=== PATIENT | female | born 1950 | race Caucasian/White ===

== ENCOUNTER 2017-12-16 19:08 | Emergency (ER) | payer MEDICARE, OTHER ==
[2017-12-16 19:19] VITALS: BP 136/108
[2017-12-16] MEDS ORDERED: Nitroglycerin 0.4 MG Tab.SL SL PRN (19:41)
[2017-12-16] MEDS ORDERED: Alum Hydrox/Mag Hydrox/Simeth 30 ML, Lidocaine 2% 15 ML PO ONE ×2 (19:41)
[2017-12-16] MEDS ORDERED: Aspirin 81 MG Tab.Chew PO ONE (19:41)
[2017-12-16] MEDS ORDERED: Sodium Chloride 0.9% 1,000 ML IV SCH (19:45)
--- NOTE | 2017-12-16 19:47 | EDM.PDOC ---
ED HPI GENERAL MEDICAL PROBLEM - General Chief Complaint: Chest Pain Stated Complaint: CHEST PAIN Time Seen by Provider: 12/16/17 19:39 Source of Information: Reports: Patient History Limitations: Reports: No Limitations - History of Present Illness INITIAL COMMENTS - FREE TEXT/NARRATIVE: Patient is a 67-year-old male presents ED complaining of anterior chest discomfort that started about one hour ago. Patient states pain was sudden onset described as sharp in nature and worse with taking a deep breath and palpation of the epigastric region. She did take some Tums which temporized the discomfort. Pain persist as we speak. Rated 5 out of 10. It does radiate into her back. It is not described as a tearing sensation. She denies any pain radiating through her abdomen into her lower extremities. She did become mildly diaphoretic and short of breath with onset. States she had similar symptoms in the past that were not as severe that resolved on her own accord. Pain is constant. Currently denies any shortness of breath, dysuria, acid reflux, diarrhea, blood in her stool, or fever. She is mildly nauseated with onset. Of note she did walk 3 miles today at approximately 1:00 this afternoon with no chest pain with exertion. She is little anxious. She routinely has yearly physicals. She has no past medical history and currently taking no meds. She does have 1st degree relative with heart disease with onset of unknown age. She does not smoke,use alcohol, and or recreational drugs. Middle Chest Pain Score (Numeric/FACES): 8 - Related Data Allergies Allergy/AdvReac Type Severity Reaction Status Date / Time No Known Allergies Allergy Verified 08/20/16 16:01 Home Meds: Home Meds Calcium Carbonate [Calcium] 1 tab PO BID 08/20/16 [History] Calcium Polycarbophil [Fiber Tabs] 1 tab PO BEDTIME 08/20/16 [History] Calcium Polycarbophil [Fiber Tabs] 2 tab PO QAM 08/20/16 [History] Cinnamon Bark [Cinnamon] 2 cap PO DAILY 08/20/16 [History] Multivitamin [Multivitamins] 1 tab PO DAILY 08/20/16 [History] Past Medical History HEENT History: Reports: Impaired Vision Other HEENT History: wears glasses, has dentures Cardiovascular History: Reports: None Respiratory History: Reports: None Gastrointestinal History: Reports: None Genitourinary History: Reports: None 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: , 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 Musculoskeletal History: Reports: Other (See Below) Other Musculoskeletal History: acromicroclavicualr joint arthritis, patellorfemoral pain L knee, 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, R rotator cuff impingement syndrome Neurological History: Reports: None Psychiatric History: Reports: None Endocrine/Metabolic History: Reports: None Hematologic History: Reports: None Immunologic History: Reports: None Oncologic (Cancer) History: Reports: None Dermatologic History: Reports: None - Past Surgical History Head Surgeries/Procedures: Reports: None HEENT Surgical History: Reports: Oral Surgery Social & Family History - Family History Family Medical History: Noncontributory - Tobacco Use Smoking Status *Q: Never Smoker - Caffeine Use Caffeine Use: Reports: None - Recreational Drug Use Recreational Drug Use: No ED ROS GENERAL - Review of Systems Review Of Systems: ROS reveals no pertinent complaints other than HPI. ED EXAM, GENERAL - Physical Exam Exam: See Below Exam Limited By: No Limitations General Appearance: Alert, WD/WN, Anxious Ears: Hearing Grossly Normal Nose: Normal Inspection Throat/Mouth: Normal Voice, No Airway Compromise Neck: Normal Inspection, Supple Respiratory/Chest: No Respiratory Distress, Lungs Clear, Normal Breath Sounds, No Accessory Muscle Use, Chest Non-Tender Cardiovascular: Normal Peripheral Pulses, Regular Rate, Rhythm Peripheral Pulses: 3+: Posterior Tibial (L), Posterior Tibial (R), 4+: Radial (L ), Radial (R) GI/Abdominal: Normal Bowel Sounds, Soft, Non-Tender, No Organomegaly, No Distention Back Exam: Normal Inspection Extremities: Normal Inspection, Normal Range of Motion, Non-Tender, No Pedal Edema, Normal Capillary Refill Neurological: Alert, Oriented, CN II-XII Intact, Normal Cognition, Unresponsive Psychiatric: Normal Affect, Normal Mood Skin Exam: Warm, Dry, Intact, Normal Color, No Rash Course - Vital Signs Last Recorded V/S: Last Vital Signs Temp 97.1 F 12/16/17 19:13 Pulse 59 L 12/16/17 19:13 Resp 12 12/16/17 19:13 BP 136/108 H 12/16/17 19:13 Pulse Ox 98 12/16/17 19:13 - Orders/Labs/Meds Labs: Laboratory Tests 05/28/18 05/28/18 05/28/18 Range/Units 19:27 19:27 19:27 WBC 6.36 (3.98-10.04) K/mm3 RBC 4.77 (3.98-5.22) M/mm3 Hgb 14.2 (11.2-15.7) gm/L Hct 43.0 (34.1-44.9) % MCV 90.1 (79.4-94.8) fl MCH 29.8 (25.6-32.2) pg MCHC 33.0 (32.2-35.5) g/dl RDW Std Deviation 46.5 H (36.4-46.3) fL Plt Count 255 (182-369) K/mm3 MPV 9.8 (9.4-12.3) fl Neutrophils % (Manual) 60 (40-60) % Band Neutrophils % 0 (0-10) % Lymphocytes % (Manual) 38 (20-40) % Atypical Lymphs % 0 % Monocytes % (Manual) 1 L (2-10) % Eosinophils % (Manual) 0 L (0.7-5.8) % Basophils % (Manual) 1 (0.1-1.2) Platelet Estimate Adequate Plt Morphology Comment Normal RBC Morph Comment Normal PT 10.3 (9.5-12.1) SECONDS INR 0.94 APTT 24 (24-31) SECONDS D-Dimer, Quantitative 1.51 H (0.19-0.50) mg/L Sodium 140 (136-145) mEq/L Potassium 3.3 L (3.5-5.1) mEq/L Chloride 103 (98-107) mEq/L Carbon Dioxide 30 (21-32) mEq/L Anion Gap 10.3 (5-15) BUN 20 H (7-18) mg/dL Creatinine 1.1 H (0.55-1.02) mg/dL Est Cr Clr Drug Dosing 45.82 mL/min Estimated GFR (MDRD) 49 (>60) mL/min BUN/Creatinine Ratio 18.2 H (14-18) Glucose 148 H (80-115) mg/dL Calcium 9.3 (8.5-10.1) mg/dL Total Bilirubin 0.4 (0.2-1.0) mg/dL AST 55 H (15-37) U/L ALT 52 (14-59) U/L Alkaline Phosphatase 47 (46-116) U/L Troponin I < 0.017 (0.00-0.056) ng/mL C-Reactive Protein < 0.2 (<1.0) mg/dL Total Protein 7.3 (6.4-8.2) g/dl Albumin 3.6 (3.4-5.0) g/dl Globulin 3.7 gm/dL Albumin/Globulin Ratio 1.0 (1-2) Lipase 232 (73-393) U/L Urine Color (Yellow) Urine Appearance (Clear) Urine pH (5.0-8.0) Ur Specific [place] (1.005-1.030) Urine Protein (Negative) Urine Glucose (UA) (Negative) Urine Ketones (Negative) Urine Occult Blood (Negative) Urine Nitrite (Negative) Urine Bilirubin (Negative) Urine Urobilinogen (0.2-1.0) Ur Leukocyte Esterase (Negative) Urine RBC (0-5) /hpf Urine WBC (0-5) /hpf Ur Epithelial Cells (0-5) /hpf Amorphous Sediment (NOT SEEN) /hpf Urine Bacteria (FEW) /hpf Urine Mucus (FEW) /hpf 12/16/17 12/16/17 Range/Units 21:15 23:05 WBC (3.98-10.04) K/mm3 RBC (3.98-5.22) M/mm3 Hgb (11.2-15.7) gm/L Hct (34.1-44.9) % MCV (79.4-94.8) fl MCH (25.6-32.2) pg MCHC (32.2-35.5) g/dl RDW Std Deviation (36.4-46.3) fL Plt Count (182-369) K/mm3 MPV (9.4-12.3) fl Neutrophils % (Manual) (40-60) % Band Neutrophils % (0-10) % Lymphocytes % (Manual) (20-40) % Atypical Lymphs % % Monocytes % (Manual) (2-10) % Eosinophils % (Manual) (0.7-5.8) % Basophils % (Manual) (0.1-1.2) Platelet Estimate Plt Morphology Comment RBC Morph Comment PT (9.5-12.1) SECONDS INR APTT (24-31) SECONDS D-Dimer, Quantitative (0.19-0.50) mg/L Sodium (136-145) mEq/L Potassium (3.5-5.1) mEq/L Chloride (98-107) mEq/L Carbon Dioxide (21-32) mEq/L Anion Gap (5-15) BUN (7-18) mg/dL Creatinine (0.55-1.02) mg/dL Est Cr Clr Drug Dosing mL/min Estimated GFR (MDRD) (>60) mL/min BUN/Creatinine Ratio (14-18) Glucose (80-115) mg/dL Calcium (8.5-10.1) mg/dL Total Bilirubin (0.2-1.0) mg/dL AST (15-37) U/L ALT (14-59) U/L Alkaline Phosphatase (46-116) U/L Troponin I < 0.017 (0.00-0.056) ng/mL C-Reactive Protein (<1.0) mg/dL Total Protein (6.4-8.2) g/dl Albumin (3.4-5.0) g/dl Globulin gm/dL Albumin/Globulin Ratio (1-2) Lipase (73-393) U/L Urine Color Yellow (Yellow) Urine Appearance Clear (Clear) Urine pH 7.0 (5.0-8.0) Ur Specific [place] 1.020 (1.005-1.030) Urine Protein Negative (Negative) Urine Glucose (UA) Negative (Negative) Urine Ketones Negative (Negative) Urine Occult Blood Negative (Negative) Urine Nitrite Negative (Negative) Urine Bilirubin Negative (Negative) Urine Urobilinogen 0.2 (0.2-1.0) Ur Leukocyte Esterase Trace H (Negative) Urine RBC 0-5 (0-5) /hpf Urine WBC 0-5 (0-5) /hpf Ur Epithelial Cells 0-5 (0-5) /hpf Amorphous Sediment Few H (NOT SEEN) /hpf Urine Bacteria Rare (FEW) /hpf Urine Mucus Not seen (FEW) /hpf Meds: Medications Discontinued Medications Generic Name Dose Route Start Last Admin Trade Name Freq PRN Reason Stop Dose Admin Aspirin 324 mg 12/16/17 19:41 12/16/17 19:50 Aspirin PO 12/16/17 19:42 324 mg ONETIME ONE Administration Al Hydroxide/Mg Hydroxide 30 0 ml 12/16/17 19:41 12/16/17 19:52 ml/ Lidocaine HCl 15 ml PO 12/16/17 19:42 45 ml ONETIME ONE Administration Sodium Chloride 1,000 mls @ 125 mls/hr 12/16/17 19:45 12/16/17 19:51 Normal Saline IV 125 mls/hr ASDIRECTED BRENNON Administration Sodium Chloride 100 mls @ 75 mls/hr 12/16/17 20:45 12/16/17 20:56 Normal Saline IV 75 mls/hr ASDIRECTED BRENNON Administration Iopamidol 100 ml 12/16/17 20:36 12/16/17 20:56 Isovue-370 (76%) IVPUSH 12/16/17 20:37 100 ml ONETIME ONE Administration Nitroglycerin 0.4 mg 12/16/17 19:41 Nitrostat SL Q5M PRN Chest Pain Sodium Chloride 10 ml 12/16/17 19:40 12/16/17 20:56 Saline Flush FLUSH 10 ml ASDIRECTED PRN Administration Keep Vein Open - Re-Assessments/Exams Free Text/Narrative Re-Assessment/Exam: IV established with NS at 125 mL an hour, aspirin 324 mg by mouth, GI cocktail by mouth, and also ordered when necessary nitroglycerin 0.4 mg sublingual every 5 minutes for chest pain. Initial labs and studies include CBC, chem 14, CRP, d-dimer, lipase, coag studies, troponin, UA, and chest x-ray one view. EKG sinus to cardiac rate of [address] changes noted. CXR revealed no acute findings. Final interpretation is pending. Labs reviewed: CBC was essentially normal. D-dimer elevated at 1.51. Sodium 140, potassium 3.3, creatinine 1.1, glucose 148, AST 55, troponin less than 0.017, CRP less than 0.2, lipase 232. I have ordered a CT angios the chest PE protocol. An additional order a second troponin to be obtained at 2220. 12/16/17 21:20 CT at bedtime impression: Normal chest CTA. No pulmonary embolism. Discussed results of labs and CT study with patient. She has no complaints. Symptoms drastically improved with the GI cocktail. Suspect patient has gastritis. 2nd troponin: unchanged. Patient is symptom free. Will discharge home with instructions as documented. Return precautions discussed with patient and family. The do not have any questions and agrees with plan. Departure - Departure Time of Disposition: 23:50 Disposition: Home, Self-Care 01 Condition: Good Clinical Impression: Hypokalemia Gastritis Qualifiers: Gastritis type: unspecified gastritis Chronicity: acute Gastritis bleeding: without bleeding Qualified Code(s): K29.00 - Acute gastritis without bleeding Instructions: Gastritis, Adult, [id number], Potassium Content of Foods Referrals: PCP,None [Ordering Only Provider] - Forms: ED Department Discharge Additional Instructions: EKG did not reveal any finding concerning for heart attack. DDimer was elevated thus CT of the chest was obtained to rule PE. CT of the chest came back normal. Cardiac Markers were negative as well.I do not suspect this was related to your heart. I believe you have gastritis thus treatment will be as listed below. Take prilosec 40mg every a.m. for two weeks. Take zantac 150mg PO every evening as needed. May take maalox intermittently throughout the day for epigastric pain. Refrain from caffeinated beverages, spicy foods, eating or drinking within 3 hours going to bed. Refrain from taking any form of NSAIDs. Follow-up with primary care provider this coming for reevaluation and to schedule a EGD. In addition potassium was mildly low.Please read the education provided for potassium replacement. If you develop any new or worsening symptoms please return to the ED.
[2017-12-16] MEDS: Sodium Chloride 0.9% 10 ML Syringe FLUSH PRN ×2 (19:55→20:56)
[2017-12-16] MEDS ORDERED: Iopamidol 755 Mg/ML 100 ML Bottle IVPUSH ONE (20:36)
[2017-12-16] MEDS ORDERED: Sodium Chloride 0.9% 100 ML IV SCH (20:45)
--- NOTE | 2017-12-17 07:18 | CR ---
Chest: Portable view of the chest was obtained. Comparison: No prior chest x-ray. Heart size and mediastinum are normal. Lungs are clear. Bony structures are grossly intact. Impression: 1. Nothing acute is seen on portable chest x-ray. Diagnostic code #1
--- NOTE | 2017-12-17 07:18 | CT ---
CT chest Technique: Multiple axial sections were obtained through the chest. Intravenous contrast was utilized. Study has been performed as a pulmonary angiogram protocol. Comparison: No prior chest CT, chest x-ray performed on the same day (8:03 PM). Findings: Pulmonary arteries are well-opacified. No filling defects are seen to indicate pulmonary embolism. Mediastinum and hilar regions show no adenopathy or mass. No axillary adenopathy is seen. No pericardial thickening is identified. Small portion of the visualized upper abdominal structures appear within normal limits. Lungs are clear without acute parenchymal change. Several small air-filled cysts are seen within both lung bases. Bone window settings were reviewed which show no acute osseous abnormality. Impression: 1. No findings of pulmonary embolism. 2. Other incidental findings. Nothing acute is seen on CT study of the chest performed as a pulmonary angiogram protocol. Diagnostic code #2 Agree with preliminary report issued by [facility] ([facility] preliminary report dictated on 12/16/17, 10:09 PM Central Time)
== END 2017-12-17 00:16 | disposition home or self-care (01) ==
LOC: JD.ED 19:08
DX: K29.00 Acute gastritis without bleeding (principal); E87.6 Hypokalemia; Z79.899 Other long term (current) drug therapy
CPT/HCPCS: 36415; 71045; 71275; 80053; 81001; 83690; 84484; 85007; 85027; 85379; 85610; 85730; 86140; 93005; 96360; 96361; 99285; A9270; J7030; J7040; J7050; Q9967; 93010; 99284

== ENCOUNTER 2018-08-12 07:33 | Day surgery (SDC) | payer MEDICARE, OTHER ==
[~2018-08-12 07:33] MED LIST: Cefuroxime 10 MG/ML SYRINGE EYERT SCH; Lidocaine 1% PF 2 ML SDV INJECT SCH; Pilocarpine 4% Ophth Soln 15 ML Bot EYERT SCH
[2018-08-12] MEDS: Polymyxin B/Trimethoprim 10 ML Bottle EYERT SCH ×3 (07:45→09:58)
--- NOTE | 2018-08-12 07:45 | PCM.PREANE ---
Preanesthetic Assessment - Procedure Proposed Procedure: cataract right - Anesthesia/Transfusion/Family Hx Anesthesia History: Prior Anesthesia Without Reaction Family History of Anesthesia Reaction: No Transfusion History: No Prior Transfusion(s) - Review of Systems General: No Symptoms Pulmonary: No Symptoms Cardiovascular: No Symptoms Gastrointestinal: No Symptoms Neurological: No Symptoms - Physical Assessment NPO Status Date: 08/11/18 NPO Status Time: 20:00 Pulse: 67 O2 Sat by Pulse Oximetry: 98 Respiratory Rate: 16 Blood Pressure: 100/61 Temperature: 98 F Height: 5 ft 5 in Weight: 63.957 kg ASA Class: 2 Mental Status: Alert & Oriented x3 Airway Class: Mallampati = 1 Dentition: Reports: Normal Dentition, Dentures (top) Thyro-Mental Finger Breadths: 3 Mouth Opening Finger Breadths: 3 ROM/Head Extension: Full Lungs: Clear to Auscultation, Normal Respiratory Effort Cardiovascular: Regular Rate, Regular Rhythm - Allergies Allergies/Adverse Reactions: Allergies Allergy/AdvReac Type Severity Reaction Status Date / Time No Known Allergies Allergy Verified 08/11/18 15:35 - Blood Blood Available: No - Acknowledgements Anesthesia Type Planned: MAC Pt an Appropriate Candidate for the Planned Anesthesia: Yes Alternatives and Risks of Anesthesia Discussed w Pt/Guardian: Yes Pt/Guardian Understands and Agrees with Anesthesia Plan: Yes PreAnesthesia Questionnaire HEENT History: Reports: Impaired Vision Other HEENT History: wears glasses, has dentures Cardiovascular History: Reports: None Respiratory History: Reports: None Gastrointestinal History: Reports: None Genitourinary History: Reports: None 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: , 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 Musculoskeletal History: Reports: Other (See Below) Other Musculoskeletal History: acromicroclavicualr joint arthritis, patellorfemoral pain L knee, 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, R rotator cuff impingement syndrome Neurological History: Reports: None Psychiatric History: Reports: None Endocrine/Metabolic History: Reports: None Hematologic History: Reports: None Immunologic History: Reports: None Oncologic (Cancer) History: Reports: None Dermatologic History: Reports: None - Past Surgical History Head Surgeries/Procedures: Reports: None HEENT Surgical History: Reports: Oral Surgery GI Surgical History: Reports: Cholecystectomy Musculoskeletal Surgical History: Reports: Shoulder Surgery ((R) bone spur) - SUBSTANCE USE Smoking Status *Q: Never Smoker Tobacco Use Within Last Twelve Months: No Second Hand Smoke Exposure: No Days Per Week of Alcohol Use: 0 Recreational Drug Use History: No - HOME MEDS Home Medications: Home Meds Calcium Carbonate [Calcium] 1 tab PO BID 08/20/16 [History] Calcium Polycarbophil [Fiber Tabs] 1 tab PO BEDTIME 08/20/16 [History] Calcium Polycarbophil [Fiber Tabs] 2 tab PO QAM 08/20/16 [History] Cinnamon Bark [Cinnamon] 2 cap PO DAILY 08/20/16 [History] Multivitamin [Multivitamins] 1 tab PO DAILY 08/20/16 [History] - CURRENT (IN HOUSE) MEDS Current Meds: Current Medications Brimonidine Tartrate (Alphagan 0.2% Ophth Soln) 0 ml EYERT ASDIRECTED BRENNON Stop: 08/12/18 18:00 Cefuroxime Sodium (Zinacef) 0 mg EYERT ASDIRECTED BRENNON Stop: 08/12/18 18:00 Lidocaine HCl (Xylocaine-Mpf 1%) 0 ml INJECT ASDIRECTED BRENNON Stop: 08/12/18 18:00 Phenylephrine HCl ([place]-Synephrine 2.5% Ophth Soln) 0 ml EYERT ASDIRECTED BRENNON Stop: 08/12/18 18:00 Pilocarpine HCl (Pilocar 4% Ophth Soln) 0 ml EYERT ASDIRECTED BRENNON Stop: 08/12/18 18:00 Polymyxin/Trimethoprim Sulfate (Polytrim Ophth Soln) 0 ml EYERT ASDIRECTED BRENNON Stop: 08/12/18 18:00 Tetracaine HCl (Tetracaine 0.5% Steri-Unit Ana) 0 ml EYERT ASDIRECTED BRENNON Stop: 08/12/18 18:00 Tropicamide (Mydriacyl 1% Ophth Soln) 0 ml EYERT ASDIRECTED BRENNON Stop: 08/12/18 18:00
[2018-08-12] MEDS: Brimonidine 0.2% Ophth Soln 5 ML Bottle EYERT SCH ×3 (07:48→09:58)
[2018-08-12] MEDS: Phenylephrine 2.5% Ophth Soln 2 ML Bot EYERT SCH ×5 (07:52→09:40)
[2018-08-12] MEDS: Tropicamide 1% Ophth Soln 15 ML Bottle EYERT SCH ×4 (07:58→08:52)
[2018-08-12] MEDS: Tetracaine HCl/PF 0.5% 4 ML Bottle EYERT SCH ×4 (09:18→09:48)
[2018-08-12 10:10] VITALS: BP 102/59
--- NOTE | 2018-08-12 10:21 | PCM48HPAN ---
Post Anesthesia Note - EVALUATION WITHIN 48HRS OF ANESTHETIC Vital Signs in Normal Range: Yes Patient Participated in Evaluation: Yes Respiratory Function Stable: Yes Airway Patent: Yes Cardiovascular Function Stable: Yes Hydration Status Stable: Yes Pain Control Satisfactory: Yes Nausea and Vomiting Control Satisfactory: Yes Mental Status Recovered: Yes Pulse Rate: 60 SaO2: 98 Resp Rate: 16 Temperature: 98 F Blood Pressure: 102/59
== END 2018-08-12 10:08 | disposition home or self-care (01) ==
LOC: JD.SDS 07:33
PROVIDERS: ATTEND Ophthalmology
DX: H25.811 Combined forms of age-related cataract, right eye (principal); H02.831 Dermatochalasis of right upper eyelid; H16.223 Keratoconjunctivitis sicca, not specified as Sjogren's, bilateral; H35.9 Unspecified retinal disorder; Z98.42 Cataract extraction status, left eye; Z96.1 Presence of intraocular lens; Z79.899 Other long term (current) drug therapy
CPT/HCPCS: 66984; A9270; J0697; C1780; J2001

== ENCOUNTER 2020-06-22 08:30 | Emergency (ER) | payer MEDICARE, OTHER ==
--- NOTE | 2020-06-22 08:55 | EDM.PDOC ---
ED HPI GENERAL MEDICAL PROBLEM - General Chief Complaint: Syncope Stated Complaint: FALL/LOW BP/L FOOT PAIN Time Seen by Provider: 06/22/20 08:50 Source of Information: Reports: Patient, Family (spouse) History Limitations: Reports: No Limitations - History of Present Illness INITIAL COMMENTS - FREE TEXT/NARRATIVE: 70-year-old female presents to the ED for evaluation of syncopal event that occurred in her kitchen earlier this morning between 4 and 5 AM. She is not on any medications for blood pressure or her heart. She not aware of her heart racing skipping or jumping. She reports that she fell yesterday while walking up a flight of stairs at her home. This is resulted in an acute inversion injury to her left ankle and it became much more painful last evening and again this morning with attempt to walk. She not sure if she tripped over her own feet this morning or blood pressure dropped precipitously. She reports this morning she perhaps felt slightly dizzy prior to syncopal event. She states she did hit the kitchen floor with the back of her head but has no headache nausea or vomiting. No cervical neck pain no upper extremity pain. No nausea or vomiting benign abdomen and she did eat breakfast. She states the lateral aspect of her left foot is now more sore than it was even yesterday. Initial blood pressure here is 131/60.Heart rate of 75 and 02 sats of 99%. Onset: Today, Sudden Onset Date: 06/22/20 Onset Time: 04:30 Duration: Hour(s): (Syncopal event which precipitate a fall in her kitchen at home early this morning.), Other (Pain left lateral foot is getting worse.) Location: Reports: Head, Lower Extremity, Left (Left lateral foot.) Quality: Reports: Ache Severity: Moderate Improves with: Reports: Rest Worsens with: Reports: Movement Context: Denies: Activity (And weightbearing.), Exercise, Lifting, Sick Contact, Trauma, Other Associated Symptoms: Reports: Weakness. 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 (see below) (None.) Left Foot Pain Score (Numeric/FACES): 9 - Related Data Allergies Allergy/AdvReac Type Severity Reaction Status Date / Time No Known Allergies Allergy Verified 08/11/18 15:35 Home Meds: Home Meds Calcium Carbonate [Calcium] 1 tab PO BID 08/20/16 [History] Cinnamon Bark [Cinnamon] 2 cap PO DAILY 08/20/16 [History] Multivitamin [Multivitamins] 1 tab PO DAILY 08/20/16 [History] calcium polycarbophiL [Fiber Tabs] 1 tab PO BEDTIME 08/20/16 [History] calcium polycarbophiL [Fiber Tabs] 2 tab PO QAM 08/20/16 [History] Past Medical History HEENT History: Reports: Impaired Vision Other HEENT History: wears glasses, has dentures Cardiovascular History: Reports: Other (See Below) (She recognizes frequent palpitations for 2 years.) Respiratory History: Reports: None Gastrointestinal History: Reports: Chronic Constipation Genitourinary History: Reports: None 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 OPERATOR History: Reports: , Spontaneous Musculoskeletal History: Reports: Other (See Below) Other Musculoskeletal History: acromicroclavicualr joint arthritis, patellorfemoral pain L knee, 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, R rotator cuff impingement syndrome Neurological History: Reports: None Psychiatric History: Reports: None Endocrine/Metabolic History: Reports: Osteoporosis, Vitamin D Deficiency Hematologic History: Reports: None Immunologic History: Reports: None Oncologic (Cancer) History: Reports: None Dermatologic History: Reports: None - Past Surgical History Head Surgeries/Procedures: Reports: None HEENT Surgical History: Reports: Oral Surgery GI Surgical History: Reports: Cholecystectomy Musculoskeletal Surgical History: Reports: Shoulder Surgery ((R) bone spur) Social & Family History - Family History Family Medical History: No Pertinent Family History - Caffeine Use Caffeine Use: Reports: None - Living Situation & Occupation Living situation: Reports: Occupation: Retired ED ROS GENERAL - Review of Systems Review Of Systems: See Below Constitutional: Reports: Fatigue. Denies: Fever, Chills, Malaise, Weakness, Decreased Appetite, Weight Loss HEENT: Reports: No Symptoms Respiratory: Reports: No Symptoms Cardiovascular: Reports: Palpitations (Patient has a history of palpitations or at least a feeling of rapid heartbeats intermittently for the last 2 years. Nothing sustained. Advised if these continue she will require Holter monitor assessment.) Endocrine: Reports: Fatigue GI/Abdominal: Reports: Constipation : Reports: Frequency, Incontinence (Very rare stress-induced incontinence) Musculoskeletal: Reports: Other (Has mild arthritis in her knees hips lower back and neck. Current pain is lateral aspect left foot.) Skin: Reports: No Symptoms Neurological: Reports: No Symptoms Psychiatric: Reports: No Symptoms Hematologic/Lymphatic: Reports: No Symptoms Immunologic: Reports: No Symptoms - Physical Exam Exam: See Below Exam Limited By: No Limitations General Appearance: Alert, WD/WN, No Apparent Distress, Other (Temperature is 36.7 with a heart rate of 85 and sinus respiratory 16 BP 131/60. O2 sats 99 to 100%.) Eye Exam: Bilateral Eye: Normal Inspection, PERRL (No blepharal pallor or scleral icterus.) Ears: Normal External Exam Nose: Normal Inspection Throat/Mouth: Normal Inspection, Normal Lips, Normal Teeth, Normal Oropharynx Head Exam: Atraumatic, Normocephalic, Other (She states she hit the back of her head when she hit the floor left occipital scalp banding. No palpable deformities) Neck: Normal Inspection ( significant tenderness or scalp hematoma identified.), Supple, Non-Tender, Full Range of Motion. No: Carotid Bruit, Lymphadenopathy (L), Lymphadenopathy (R) Respiratory/Chest: No Respiratory Distress, Lungs Clear, Normal Breath Sounds, No Accessory Muscle Use, Chest Non-Tender Cardiovascular: Normal Peripheral Pulses, Regular Rate, Rhythm, No Edema, No Gallop, No Murmur, No Rub GI/Abdominal: Normal Bowel Sounds, Soft, Non-Tender, No Organomegaly, No Mass, Pelvis Stable, Other (Abdomen is mildly tympany to percussion throughout.). No: Guarding, Rigid, Rebound Neuro Exam (Abbreviated): Alert, Oriented, CN II-XII Intact, Normal Cognition Back Exam: Normal Inspection, Full Range of Motion. No: CVA Tenderness (L), CVA Tenderness (R) Extremities: Other (Patient has no pain left proximal tib-fib. Mid tib-fib is normal as well ankle appears to be normal on exam with no pain on firm compression. Tenderness and some ecchymoses developing lateral aspect of the left foot in the distribution of the fourth and fifth metatarsals. Is able to wiggle her toes and dorsiflex at the ankle.) Psychiatric: Normal Affect, Normal Mood Skin Exam: Warm, Dry, Intact, No Rash, Ecchymosis (And ecchymoses developing left lateral dorsal foot.) #1 Interpretation EKG Date: 06/22/20 Time: 08:51 Rhythm: NSR Rate (Beats/Min): 82 [place]: Normal P-Wave: Enlarged (Left atrial hypertrophy.) QRS: Other (RSR prime wave V1 consider normal variant.) ST-T: Normal QT: Normal EKG Interpretation Comments: Borderline ECG Course - Vital Signs Last Recorded V/S: Last Vital Signs Temp 36.7 C 06/22/20 08:35 Pulse 85 06/22/20 08:35 Resp 16 06/22/20 08:35 BP 131/60 06/22/20 08:35 Pulse Ox 100 06/22/20 08:35 Orthostatic Blood Pressure [ 102/66 Standing] Orthostatic Blood Pressure [ 112/55 Sitting] Orthostatic Blood Pressure [ 114/60 Supine] - Orders/Labs/Meds Orders: Active Orders 24 hr Category Date Time Status EKG 12 Lead [EKG Documentation Completion] [RC] STAT Care 06/22/20 08:54 Acti ve Orthostatic Vital Signs [RC] ASDIRECTED Care 06/22/20 08:58 Active Dextrose 5%-0.9% NaCl [Dextrose 5%-Normal Saline] 1,000 Med 06/22/20 09:00 Active ml IV ASDIRECTED Medication Orders Dextrose/Sodium Chloride (Dextrose 5%-Normal Saline) 1,000 mls @ 500 mls/hr IV ASDIRECTED BRENNON Last Admin: 06/22/20 09:20 Dose: 500 mls/hr Documented by: JORDANA Labs: Laboratory Tests 06/22/20 06/22/20 06/22/20 Range/Units 09:05 09:05 09:40 WBC 10.86 H (3.98-10.04) K/mm3 RBC 4.79 (3.98-5.22) M/mm3 Hgb 14.8 (11.2-15.7) gm/dl Hct 43.4 (34.1-44.9) % MCV 90.6 (79.4-94.8) fl MCH 30.9 (25.6-32.2) pg MCHC 34.1 (32.2-35.5) g/dl RDW Std Deviation 47.2 H (36.4-46.3) fL Plt Count 241 (182-369) K/mm3 MPV 10.1 (9.4-12.3) fl Neut % (Auto) 81.8 H (34.0-71.1) % Lymph % (Auto) 8.8 L (19.3-51.7) % [place] % (Auto) 8.7 (4.7-12.5) % Eos % (Auto) 0.5 L (0.7-5.8) Baso % (Auto) 0.2 (0.1-1.2) % Neut # (Auto) 8.89 H (1.56-6.13) K/mm3 Lymph # (Auto) 0.96 L (1.18-3.74) K/mm3 [place] # (Auto) 0.94 H (0.24-0.36) K/mm3 Eos # (Auto) 0.05 (0.04-0.36) K/mm3 Baso # (Auto) 0.02 (0.01-0.08) K/mm3 Manual Slide Review Normal smear Sodium 141 (136-145) mEq/L Potassium 4.0 (3.5-5.1) mEq/L Chloride 105 (98-107) mEq/L Carbon Dioxide 30 (21-32) mEq/L Anion Gap 10.0 (5-15) BUN 17 (7-18) mg/dL Creatinine 1.1 H (0.55-1.02) mg/dL Est Cr Clr Drug Dosing 42.21 mL/min Estimated GFR (MDRD) 49 (>60) mL/min BUN/Creatinine Ratio 15.5 (14-18) Glucose 121 H (83-115) mg/dL Calcium 9.8 (8.5-10.1) mg/dL Magnesium 2.2 (1.8-2.4) mg/dl Total Bilirubin 0.5 (0.2-1.0) mg/dL AST 13 L (15-37) U/L ALT 26 (14-59) U/L Alkaline Phosphatase 45 L (46-116) U/L Troponin I < 0.017 (0.00-0.056) ng/mL C-Reactive Protein 0.7 (<1.0) mg/dL Total Protein 7.6 (6.4-8.2) g/dl Albumin 3.8 (3.4-5.0) g/dl Globulin 3.8 gm/dL Albumin/Globulin Ratio 1.0 (1-2) Urine Color Light yellow (Yellow) Urine Appearance Clear (Clear) Urine pH 7.0 (5.0-8.0) Ur Specific [place] 1.020 (1.005-1.030) Urine Protein Negative (Negative) Urine Glucose (UA) Negative (Negative) Urine Ketones Negative (Negative) Urine Occult Blood Negative (Negative) Urine Nitrite Negative (Negative) Urine Bilirubin Negative (Negative) Urine Urobilinogen 0.2 (0.2-1.0) Ur Leukocyte Esterase Negative (Negative) Urine RBC 0-5 (0-5) /hpf Urine WBC 0-5 (0-5) /hpf Ur Squamous Epith Cells 0-5 (0-5) /hpf Urine Bacteria Few (FEW) /hpf Urine Mucus Not seen (FEW) /hpf Meds: Medications Generic Name Dose Route Start Last Admin Trade Name Freq PRN Reason Stop Dose Admin Dextrose/Sodium Chloride 1,000 mls @ 500 mls/hr 06/22/20 09:00 06/22/20 09:20 Dextrose 5%-Normal Saline IV 500 mls/hr ASDIRECTED BRENNON Administration - Radiology Interpretation Free Text/Narrative:: 70-year-old female attends the ED after experiencing a syncopal event early this morning around 0430 hrs. She believes she was feeling slightly dizzy prior to syncopal event which landed her on the kitchen floor. She had injured her left lateral foot going up a flight of stairs yesterday when she fell. It is now hurting more since she fell or had a syncopal event this morning. No reported fever chills nausea vomiting or headache. She did hit the back of her head on the floor this morning but has no headache and clinically no Injuries or justin charissa. She is mildly orthostatic with a blood pressure drop and heart rate increase upon standing. Standing blood pressure was 102/66 with a heart rate of 90.Blood pressure 114/60 with a heart rate of 74. Of note her also identified a low blood pressure at home this morning. Plan IV D5 normal saline at 500 mils per hour. X-rays of the left foot to be done 3 view. Routine labs and a urinalysis to be done. - Re-Assessments/Exams Free Text/Narrative Re-Assessment/Exam: 06/22/20 10:14 X-rays of the left foot do not reveal any fractures. There are degenerative changes at the fifth MTP joint.Hematology reveals a white count of 10.86. Auto differential shows 81.8% neutrophils would suggest underlying infection. Hemoglobin 14.8 with hematocrit of 43.4. Platelet count 241,000. The smear is normal without any reported bandemia. Sodium is 141 with a potassium of 4.0 chloride 105 with a bicarb of 30. Anion gap is 10.0 BUN is 17 with a creatinine of 1.1 and a GFR 49. Glucose 121. Calcium 9.8 with a magnesium of 2.2. Bilirubin is normal at 0.5 AST slightly low at 13. ALT 26. Alk phos today is 45. Troponin I is less than 0.017. C-reactive protein is 0.7. Urinalysis shows no signs of infection. Plan Jaguar wrap to the left foot to be applied. Patient believes she will not need a gait aid at home. She will drink plenty of fluids such as Gatorade Powerade to improve her hydration status. Follow-up as needed. Departure - Departure Time of Disposition: 10:38 Disposition: Home, Self-Care 01 Condition: Fair Clinical Impression: Syncope and collapse, Contusion of left foot, initial encounter - Discharge Information *PRESCRIPTION DRUG MONITORING PROGRAM REVIEWED*: Not Applicable *COPY OF PRESCRIPTION DRUG MONITORING REPORT IN PATIENT CASSIDY: Not Applicable Instructions: Syncope, [id number] Referrals: Nina Pascal PA-C [Primary Care Provider] - Forms: ED Department Discharge Additional Instructions: Evaluation in the emergency room this morning in regards to left foot pain that started yesterday when you fell going up stairs at home. Pain worsened over the day and was fairly tender last night and early this morning. This morning he experienced a fainting spell or syncopal event most likely due to dropping your blood pressure as this was evident in the ED as well. This caused you to fall in the kitchen at home without significant injury and goodness. Noted contusion to the back of her head without any swelling or evidence of significant injury. Neck is okay. No injuries to the back or upper extremities. X-rays of your left foot were carried out today and they do not reveal any broken bones. There is degenerative arthritis midfoot appreciated on x-ray. Lab tests were also done to see if there was any other reason for you to have passed out. Lab tests all essentially came back normal. Urinalysis was normal as well with no signs of infection. Heart tracing and troponin levels which check for heart attack were all normal as well. As you indicated you are experiencing rapid irregular heartbeats intermittently and if this persists you will require further evaluation by wearing a home ECG monitor called a Holter monitor. I will leave this to discuss this with your primary care physician. Your blood pressure was found to be low when you stood up today suggesting "orthostatic hypotension which means you were little short on fluids over the last day or two. Make sure you continue to drink plenty of fluids at home and suggest even a bottle of Gatorade or Powerade once daily for the next 3 days to make sure you are hydration status returned to normal. Suggest a Jaguar wrap to the left foot on during the day and off at night. Today may use ice to the sore area for 1/2- hour out of every 4 hours. May use heat starting tomorrow. Motrin 600 mg every 6 hours if needed for pain relief. Sepsis Event Note (ED) - Evaluation Sepsis Screening Result: No Definite Risk - Focused Exam Vital Signs: Vital Signs Temp Pulse Resp BP Pulse Ox 06/22/20 08:35 36.7 C 85 16 131/60 100 - My Orders Last 24 Hours: My Active Orders 06/22/20 08:54 EKG 12 Lead [EKG Documentation Completion] [RC] STAT 06/22/20 08:58 Orthostatic Vital Signs [RC] ASDIRECTED 06/22/20 09:00 Dextrose 5%-0.9% NaCl [Dextrose 5%-Normal Saline] 1,000 ml IV ASDIRECTED - Assessment/Plan Last 24 Hours: My Active Orders 06/22/20 08:54 EKG 12 Lead [EKG Documentation Completion] [RC] STAT 06/22/20 08:58 Orthostatic Vital Signs [RC] ASDIRECTED 06/22/20 09:00 Dextrose 5%-0.9% NaCl [Dextrose 5%-Normal Saline] 1,000 ml IV ASDIRECTED
[2020-06-22] MEDS ORDERED: Dextrose 5%-0.9% NaCl 1,000 ML IV SCH (09:00)
--- NOTE | 2020-06-22 10:00 | CR ---
Left foot: 4 views of the left foot were obtained. Comparison: No prior left foot exam is available. Findings: Osseous structures: Small spurs are noted off the plantar margin and at the attachment of the Achilles tendon to the calcaneus. Mild joint space narrowing is noted within the 1st MTP joint. Scattered joint space narrowing is noted within the mid foot. Possible old erosion is noted between the 1st and 2nd cuneiform bones. Osteopenia is present. Soft tissues: No discrete abnormality is appreciated. Impression: 1. Degenerative change as noted above. 2. Osteopenia. 3. Nothing acute is definitely appreciated. Diagnostic code #2
[2020-06-22 11:45] VITALS: BP 133/67; PULSE 72
== END 2020-06-22 10:55 | disposition home or self-care (01) ==
LOC: JD.ED 08:30
DX: S90.32XA Contusion of left foot, initial encounter (principal); R55 Syncope and collapse; W19.XXXA Unspecified fall, initial encounter; Y92.009 Unspecified place in unspecified non-institutional (private) residence as the place of occurrence of the external cause
CPT/HCPCS: 36415; 73630; 80053; 81001; 83735; 84484; 85025; 86140; 93005; 99284; J7042; 93010; 99283

== ENCOUNTER 2025-01-12 19:50 | Inpatient (IN) | payer MEDICARE, OTHER ==
[2025-01-12] MEDS ORDERED: Sodium Chloride 0.9% 10 ML Syringe FLUSH PRN (20:09)
[2025-01-12 20:29] LABS: BASOPHILS PERCENT AUTO 0.5 % (0.0-1.0); EOSINOPHILS ABSOLUTE AUTO 0.1 K/mm3 (0.0-0.4); EOSINOPHILS PERCENT AUTO 0.6 % (0.0-6.0); HEMATOCRIT 41.2 % (37.0-47.0); HEMOGLOBIN 13.9 gm/dl (12.0-16.0); IMMATURE GRAN ABSOLUTE AUTO 0.03 K/mm3 (0.00-0.05); IMMATURE GRAN PERCENT AUTO 0.4 % (0.0-0.4); LYMPHOCYTES ABSOLUTE AUTO 0.8 K/mm3 (1.0-4.8); LYMPHOCYTES PERCENT AUTO 9.6 % (24.0-44.0); MEAN CORPUSCULAR HEMOGLOBIN 30.5 pg (28.0-32.0); MEAN CORPUSCULAR HGB CONC 33.7 g/dl (32.0-36.0); MEAN CORPUSCULAR VOLUME 90.4 fl (83.0-99.0); MEAN PLATELET VOLUME 9.8 fl (9.4-12.3); MONOCYTES ABSOLUTE AUTO 0.4 K/mm3 (0.0-0.8); MONOCYTES PERCENT AUTO 4.6 % (0.0-8.0); NEUTROPHILS ABSOLUTE AUTO 6.8 K/mm3 (1.8-7.7); NEUTROPHILS PERCENT AUTO 84.3 % (41.0-71.0); PLATELET COUNT,PLT 194 K/mm3 (150-400); RED BLOOD CELL COUNT 4.56 M/mm3 (4.10-5.30); WHITE BLOOD CELL COUNT,WBC 8.02 K/mm3 (3.9-11.3)
[2025-01-12] MEDS: Sodium Chloride 0.9% 10 ML Syringe FLUSH ONE (20:47)
[2025-01-12] MEDS: Sodium Chloride 0.9% 100 ML IV SCH (20:47)
[2025-01-12] MEDS: Iopamidol 755 Mg/ML 100 ML Bottle IVPUSH ONE (20:47)
[2025-01-12 20:50] LABS: A/G RATIO 0.9 (1-2); ALBUMIN 3.3 g/dl (3.4-5.0); BILIRUBIN TOTAL 0.6 mg/dL (0.2-1.0); BUN/CREATININE RATIO 23.3 (14-18); CREATININE 0.9 mg/dL (0.55-1.02); EST CRCL DRUG DOSING (CG) 47.57 mL/min; PROTEIN TOTAL,TP 6.9 g/dl (6.4-8.2)
[2025-01-12] MEDS: Sodium Chloride 0.9% 1,000 ML IV ONE (21:00)
[2025-01-12] MEDS: Meclizine 25 MG Tab PO ONE ×2 (21:00→21:02)
[2025-01-12 23:20] LABS: APPEARANCE,URINE CLOUDY (Clear); BILIRUBIN,URINE NEGATIVE (Negative); COLOR,URINE YELLOW (Yellow); GLUCOSE,URINE NEGATIVE (Negative); KETONES,URINE 1+ (Negative); LEUKOCYTE ESTERASE,URINE TRACE (Negative); NITRITE,URINE NEGATIVE (Negative); OCCULT BLOOD,URINE NEGATIVE (Negative); PH,URINE 7.5 (5.0-8.0); PROTEIN,URINE TRACE (Negative); UROBILINOGEN,URINE 0.2 (0.2-1.0)
[2025-01-12 23:35] LABS: RBC,URINE 0-5 /hpf (0-5)
[2025-01-12 23:36] LABS: AMORPHOUS SEDIMENT,URINE MANY /hpf (NOT SEEN); BACTERIA,URINE FEW /hpf (FEW); EPITHELIAL CELLS,URINE 0-5 /hpf (0-5); MUCUS,URINE FEW /hpf (FEW)
[2025-01-13] MEDS: Aspirin 81 MG Tab.Chew PO ONE (02:18)
[2025-01-13] MEDS: Aspirin 81 MG Tab.Chew ONE (02:18)
[2025-01-13] MEDS ORDERED: Acetaminophen 325 MG Tab PO PRN (06:07)
[2025-01-13] MEDS ORDERED: Ondansetron 4 MG/2 ML SDV IV PRN (06:07)
[2025-01-13 13:54] VITALS: BP 109/59; PULSE 57
[2025-01-14] MEDS ORDERED: Enoxaparin 40 MG/0.4 ML Syringe SUBCUT SCH (09:00)
== END 2025-01-13 14:00 | disposition home or self-care (01) | DRG 149 ==
LOC: JD.ED 19:50 → JD.MS 01-13 00:10
PROVIDERS: ADMIT Internal Medicine; ATTEND Internal Medicine
DX: R42 Dizziness and giddiness (principal); H54.7 Unspecified visual loss; K59.09 Other constipation; M19.90 Unspecified osteoarthritis, unspecified site; F32.A Depression, unspecified; M81.0 Age-related osteoporosis without current pathological fracture; E55.9 Vitamin D deficiency, unspecified; Z98.890 Other specified postprocedural states; Z90.49 Acquired absence of other specified parts of digestive tract; Z79.899 Other long term (current) drug therapy
CPT/HCPCS: 36415; 70450; 70496; 70498; 80053; 81001; 83735; 85025; 87086; 93005; 96360; 96361; 99285; A9270; J7030; Q9967; 70551; 70551-26; 93010

== ENCOUNTER 2025-06-28 11:08 | Emergency (ER) | payer MEDICARE, OTHER ==
[2025-06-28 19:02] VITALS: BP 113/70; PULSE 67
== END 2025-06-28 17:28 | disposition home or self-care (01) ==
LOC: JD.ED 11:08
DX: S01.01XA Laceration without foreign body of scalp, initial encounter (principal); S33.8XXA Sprain of other parts of lumbar spine and pelvis, initial encounter; Z90.49 Acquired absence of other specified parts of digestive tract; Z88.8 Allergy status to other drugs, medicaments and biological substances; Z79.899 Other long term (current) drug therapy; W10.9XXA Fall (on) (from) unspecified stairs and steps, initial encounter
CPT/HCPCS: 12001; 70450; 70450-26; 72125; 72125-26; 72220; 72220-26; 99283; 99284; J0665